=== PATIENT | female | born 1955 | race African-American/Black ===

== ENCOUNTER 2017-01-04 17:06 | Emergency (ER) | payer MEDICAID, OTHER ==
[~2017-01-04] VITALS: Ht 162.6 cm; Wt 100.0 kg
[2017-01-04] MEDS ORDERED: DICYCLOMINE 10 MG/5 ML ORAL SYR PO STA (18:52)
[2017-01-04] MEDS ORDERED: ONDANSETRON HCL 4MG/2ML VIAL IV STA (18:52)
[2017-01-04] MEDS ORDERED: SODIUM CHLORIDE 0.9% 1,000 ML IV ONE (18:52)
[2017-01-04 19:44] LABS: CHLORIDE 108 mEq/L (98-107); INDEX HEMOLYSI 1 (1-3); INDEX ICTERIC 1 (1-4); INDEX LIPEMIC 1 (1-3)
[2017-01-04 19:52] LABS: ALANINE AMINOTRANSFERASE 14 IU/L (13-61); ALBUMIN 3.8 g/dL (3.4-5.0); ANION GAP 15; CARBON DIOXIDE 24 mEq/L (21-32); LIPASE 60 IU/L (73-393); UREA NITROGEN BLOOD 9 mg/dL (7-21); eGFR > 60 mL/min (>60)
[2017-01-04 20:01] LABS: HEMATOCRIT. 37.9 % (36.0-48.0); HEMOGLOBIN. 12.4 g/dL (12.0-16.0); MEAN CORPUSCULAR HEMOGLOBIN 24.6 pg (28.0-32.0); MEAN CORPUSCULAR HGB CONC 32.7 g/dL (31.0-37.0); MEAN PLATELET VOLUME 8.9 fl (7.4-10.4); PLATELET 232 x1000/uL (130-400); RED BLOOD CELL COUNT 5.05 mill/uL (4.2-5.4); RED CELL DISTRIBUTION WIDTH 15.7 % (11.6-14.6); WHITE BLOOD COUNT 13.1 x1000/uL (4.5-11.0)
[2017-01-04 20:09] LABS: DIFFERENTIAL COMMENT 1
[2017-01-04 20:53] LABS: PLATELET ESTIMATE NORMAL
[2017-01-04 20:54] LABS: ANISOCYTOSIS 1+; HYPOCHROMASIA 1+
[2017-01-04 21:29] VITALS: BP 168/72
== END 2017-01-04 21:31 | disposition home or self-care (01) ==
LOC: ER 18:27
DX: R10.84 Generalized abdominal pain (principal); R11.10 Vomiting, unspecified; R19.7 Diarrhea, unspecified; M19.90 Unspecified osteoarthritis, unspecified site; I10 Essential (primary) hypertension; Z98.890 Other specified postprocedural states; F12.10 Cannabis abuse, uncomplicated
CPT/HCPCS: 36415; 80053; 83690; 85025; 96361; 96374; 99284; J2405; J7030; Z7610